=== PATIENT | male | born 1945 | race Caucasian/White ===

== ENCOUNTER 2016-12-06 10:47 | Day surgery (SDC) | payer OTHER ==
[2016-12-06] MEDS ORDERED: SODIUM CHLORIDE 1,000 ML IV ONE (12:30)
[2016-12-06 13:50] VITALS: BP 132/74; PULSE 78
== END 2016-12-06 13:53 | disposition home or self-care (01) ==
LOC: FINFUSION 10:47 → FM/S 10:48 → FINFUSION 13:53
PROVIDERS: ATTEND Internal Medicine Hematology & Oncology
PROC: 3E0337Z Introduction of Electrolytic and Water Balance Substance into Peripheral Vein, Percutaneous Approach (ICD-10-PCS; principal; 2016-12-06)
DX: C18.9 Malignant neoplasm of colon, unspecified (principal); E86.0 Dehydration
CPT/HCPCS: 96365; 96366

== ENCOUNTER 2016-12-07 09:05 | Day surgery (SDC) | payer OTHER ==
[2016-12-07] MEDS ORDERED: SODIUM CHLORIDE 1,000 ML IV SCH (09:30)
[2016-12-07 09:45] VITALS: BP 137/67; PULSE 83; TEMP 98.1
[2016-12-07 12:55] VITALS: BMI 21.2
== END 2016-12-07 10:54 | disposition home or self-care (01) ==
LOC: FM/S 09:05 → FINFUSION 09:05 → FM/S 09:47 → FINFUSION 10:54
PROVIDERS: ATTEND Internal Medicine Hematology & Oncology
PROC: 3E0337Z Introduction of Electrolytic and Water Balance Substance into Peripheral Vein, Percutaneous Approach (ICD-10-PCS; principal; 2016-12-07)
DX: C18.9 Malignant neoplasm of colon, unspecified (principal); E86.0 Dehydration
CPT/HCPCS: 96360

== ENCOUNTER 2016-12-08 08:46 | Day surgery (SDC) | payer OTHER ==
[2016-12-08] MEDS ORDERED: SODIUM CHLORIDE 1,000 ML IV ONE (13:00)
[2016-12-08 13:03] VITALS: BP 150/84; PULSE 98; TEMP 98.1; BMI 24.0
== END 2016-12-08 10:20 | disposition home or self-care (01) ==
LOC: FINFUSION 08:46 → FM/S 08:47 → FINFUSION 10:20
PROVIDERS: ATTEND Internal Medicine Hematology & Oncology
PROC: 3E0337Z Introduction of Electrolytic and Water Balance Substance into Peripheral Vein, Percutaneous Approach (ICD-10-PCS; principal; 2016-12-08)
DX: C18.9 Malignant neoplasm of colon, unspecified (principal); E86.0 Dehydration
CPT/HCPCS: 96365; 96366